=== PATIENT | male | born 1980 | race Caucasian/White ===

== ENCOUNTER → 2023-07-29 | Day surgery (SDC) | payer OTHER ==
[2023-07-22 14:39] LABS: BASOPHILS # (AUTO) 0.1 X10'3 (0-0.2); BASOPHILS % (AUTO) 0.8 % (0-1); EOSINOPHILS # (AUTO) 0.1 X10'3 (0-0.9); EOSINOPHILS % (AUTO) 1.3 % (0-6); LYMPHOCYTES # (AUTO) 1.7 X10'3 (1.1-4.8); LYMPHOCYTES % (AUTO) 22.7 % (21-51); MEAN CORPUSCULAR HEMOGLOBIN 28.3 PG (27.0-31.0); MEAN CORPUSCULAR HGB CONC 33.4 g/dL (33.0-36.5); MEAN CORPUSCULAR VOLUME 84.8 FL (78-98); MONOCYTES # (AUTO) 0.5 X10'3 (0-0.9); MONOCYTES % (AUTO) 6.7 % (2-12); NEUTROPHILS # (AUTO) 5.1 X10'3 (1.8-7.7); NEUTROPHILS % (AUTO) 68.5 % (42-75); PRE OP HEMATOCRIT 39.8 % (42.0-52.0); PRE OP HEMOGLOBIN 13.3 g/dL (14.0-17.9); PRE OP PLATELET COUNT 244 X10'3 (140-440); PRE OP WHITE BLOOD COUNT 7.5 10'3 (4.8-10.8); RED BLOOD COUNT 4.69 X10'6 (4.70-6.10); RED CELL DISTRIBUTION WIDTH 13.7 % (11.5-14.5)
[2023-07-22 14:49] LABS: ALBUMIN 3.4 G/DL (3.4-5.0); ALBUMIN/GLOBULIN RATIO 0.8 (1.1-1.5); ALKALINE PHOSPHATASE 92 IU/L (46-116); BLOOD UREA NITROGEN 14 MG/DL (7-18); BUN/CREATININE RATIO 18.7 (10.0-20.0); CALCIUM 8.6 MG/DL (8.5-10.1); CHLORIDE 106 MMOL/L (99-107); CREATININE 0.75 MG/DL (0.60-1.10); PRE OP ALT 12 U/L (30-65); PRE OP ANION GAP 9 (8-16); PRE OP AST 14 U/L (10-37); PRE OP BILIRUB, TOTAL 0.9 MG/DL (0.0-1.0); PRE OP GLUCOSE 76 MG/DL (70-104); PRE OP POTASSIUM 3.4 MMOL/L (3.4-5.1); PRE OP SODIUM 144 MMOL/L (135-145); TOTAL CARBON DIOXIDE 29.1 MMOL/L (24-32); TOTAL PROTEIN 7.5 G/DL (6.4-8.2); eGFR > 90 ML/MIN
[2023-07-29] VITALS (8 sets, daily range): BP systolic 113–137; BP diastolic 65–91; PULSE 52–68; RESP 12–21; TEMP 97.8; O2SAT 98–99
[~2023-07-29] VITALS: Ht 177.8 cm; Wt 87.4 kg
[~2023-07-29] MED LIST: AMYL1CAP54 PO; BUPIVAcaine/PF 2.5mg/ml (0.25%) 10ml vial ONE; CREATININE PO; HYDROcodone/acetaminophen 5mg/325mg tablet PO PRN; LACTOSE PO; LIDOcaine 1% 30ml preserv. free vial ONE; LIDOcaine 1%/PF 5ML 10 MG/ML VIAL ONE; MARIJUANA; MIDAZolam 1 MG/ML 5ML VIAL ONE; REMIFENTANIL (Ultiva) 1 MG VIAL IV ONE; dexamethasone sod phosphate 4mg/ml inj. ONE; enalaprilat dihydrate 2.5mg/2ml vial IV PRN; fentaNYL/PF 50MCG/1 ML 2ML syringe ONE; glycopyrrolate 0.2mg/ml inj ONE; labetalol 20mg/4ml (5mg/ml) syringe IV PRN; meperidine/PF 25mg/ml syringe IV PRN; morphine 2 MG/ML inj. syringe IV PRN; ondansetron/PF 4mg/2ml inj IV PRN; ondansetron/PF 4mg/2ml inj ONE; proCHLORperazine 10 MG/2 ml inj IV PRN; propofol inj 20 ML IV ONE; ringers solution, lacted 1,000 ML IV SCH; rocuronium 10mg/ml inj IV ONE
[2023-07-29] MEDS: cefazolin 2gm/D5W 100mL 100 ML IV ONE (05:30)
[2023-07-29] MEDS: ringers solution, lacted 1,000 ML IV SCH (09:29)
[2023-07-29] MEDS: famotidine 20mg tablet PO ONE (09:30)
[2023-07-29] MEDS: LIDOcaine 1% 30ml preserv. free vial IJ ONE (11:33)
[2023-07-29] MEDS: meperidine/PF 25mg/ml syringe IV PRN (13:04)
[2023-07-29] MEDS: acetaminophen 1,000mg/100ml IV 100 ML IV STA (13:19)
[2023-07-29] MEDS: morphine 4 MG/ML inj SYRINge IV PRN (13:21)
[2023-07-29] MEDS: HYDROcodone/acetaminophen 10/325mg tab PO ONE (14:12)
== END | disposition home or self-care (01) ==
LOC: PAS 08:50
PROVIDERS: ATTEND Surgery
DX: K40.21 Bilateral inguinal hernia, without obstruction or gangrene, recurrent (principal); K42.0 Umbilical hernia with obstruction, without gangrene; R00.1 Bradycardia, unspecified; F41.9 Anxiety disorder, unspecified; F32.A Depression, unspecified; F43.10 Post-traumatic stress disorder, unspecified; G47.30 Sleep apnea, unspecified; M19.90 Unspecified osteoarthritis, unspecified site; F12.90 Cannabis use, unspecified, uncomplicated; Z87.891 Personal history of nicotine dependence; Z87.442 Personal history of urinary calculi; Z79.899 Other long term (current) drug therapy; Z88.8 Allergy status to other drugs, medicaments and biological substances
CPT/HCPCS: 36415; 49592; 49651; 80053; 82948; 85025; 93005; C1781; J0131; J0690; J1100; J2175; J2250; J2270; J2405; J2704; J2710; J3010; J3490; J7030; J7120; S2900; Z7506; Z7508; Z7512; A4215; A4618

== ENCOUNTER 2024-05-20 13:49 | Emergency (ER) | payer OTHER ==
[~2024-05-20] VITALS: Ht 175.3 cm; Wt 86.0 kg
[~2024-05-20 13:49] MED LIST changes: -BUPIVAcaine/PF 2.5mg/ml (0.25%) 10ml vial ONE; -CREATININE PO; -HYDROcodone/acetaminophen 5mg/325mg tablet PO PRN; -LIDOcaine 1% 30ml preserv. free vial ONE; -LIDOcaine 1%/PF 5ML 10 MG/ML VIAL ONE; -MIDAZolam 1 MG/ML 5ML VIAL ONE; -REMIFENTANIL (Ultiva) 1 MG VIAL IV ONE; -dexamethasone sod phosphate 4mg/ml inj. ONE; -enalaprilat dihydrate 2.5mg/2ml vial IV PRN; -fentaNYL/PF 50MCG/1 ML 2ML syringe ONE; -glycopyrrolate 0.2mg/ml inj ONE; -labetalol 20mg/4ml (5mg/ml) syringe IV PRN; -meperidine/PF 25mg/ml syringe IV PRN; -morphine 2 MG/ML inj. syringe IV PRN; -ondansetron/PF 4mg/2ml inj IV PRN; -ondansetron/PF 4mg/2ml inj ONE; -proCHLORperazine 10 MG/2 ml inj IV PRN; -propofol inj 20 ML IV ONE; -ringers solution, lacted 1,000 ML IV SCH; -rocuronium 10mg/ml inj IV ONE
[2024-05-20 13:54] VITALS: BP 123/81; PULSE 92; TEMP 100; O2SAT 96
[2024-05-20 15:28] VITALS: RESP 16
== END 2024-05-20 16:35 | disposition home or self-care (01) ==
LOC: ER 13:50
DX: J06.9 Acute upper respiratory infection, unspecified (principal)
CPT/HCPCS: 71045; 99283